=== PATIENT | female | born 1990 | race Caucasian/White ===

== ENCOUNTER 2025-04-20 15:26 | Outpatient (CLI) | payer SELFPAY ==
[2025-04-20 15:29] VITALS: BMI 36.3
--- NOTE | 2025-04-20 15:33 | XR_ITS ---
Examination: Complete OB ultrasound greater than 14 weeks Date and time of exam: April 20, 2025 1537 hours INDICATIONS: Vaginal discharge 2 days, no care Findings: Viable intrauterine single fetus with single amniotic sac presentation cephalic spine maternal left Cardiac motion 167 bpm Placenta posterior grade 2 Medical cord insertion 3 vessels seen Amniotic fluid index 8.3 cm Cervix 2.9 cm Ovaries obscured by bowel gas. Composite estimated gestational age based on BPD, head circumference, abdominal circumference, femur length is 34 weeks 0 days Estimated weight 2269.7 g. Survey of intracranial anatomy, spinal anatomy, abdominal anatomy, four-chamber heart performed with no abnormalities identified. Impression: Viable intrauterine gestation cephalic presentation.
[2025-04-20 16:20] VITALS: BP 111/62; PULSE 91
[2025-04-20 16:24] VITALS: BP 111/62; PULSE 91; RESP 100; RESP 18; TEMP 36.6
[2025-04-20 16:48] LABS: Basophils # (Auto) 0.0 Thou/mm3 (0.0-0.2); Basophils % (Auto) 0 % (0-2.5); Eosinophils # (Auto) 0.2 Thou/mm3 (0.0-0.5); Eosinophils % (Auto) 2 % (0-10); Hematocrit 32.8 % (36.0-46.0); Hemoglobin 10.5 g/dL (12.0-16.0); Immature Granulocytes Auto 0.06 Thou/mm3 (0.00-0.00); Lymphocytes # (Auto) 2.0 Thou/mm3 (1.0-4.8); Lymphocytes % (Auto) 19 % (10-50); Mean Corpuscular HGB Conc 32.0 g/dl (31.0-37.0); Mean Corpuscular Hemoglobin 25.7 pg (25.0-35.0); Mean Corpuscular Volume 80 fL (80-100); Monocytes # (Auto) 0.8 Thou/mm3 (0.0-0.8); Monocytes % (Auto) 8 % (0-12); Neutrophils # (Auto) 7.1 Thou/mm3 (1.8-7.7); Neutrophils % (Auto) 70 % (37-80); Nucleated Red Blood Cell # 0.00 Thou/mm3 (0.00-0.00); Nucleated Red Blood Cell % 0 /100 WBC (0); Platelet Count 212 Thou/mm3 (140-440); RDW Standard Deviation 39.6 fL (36.4-46.3); Red Blood Count 4.09 Miln/mm3 (4.00-5.20); White Blood Count 10.2 Thou/mm3 (3.6-11.0)
[2025-04-20 17:22] LABS: Syphilis Nonreactive (Nonreactive)
[2025-04-20 17:31] LABS: Hepatitis B Surface Antigen Non Reactive (Non React); Rubella, IgG Antibody Equivocal
[2025-04-20 18:18] LABS: HIV (1&2) Antibody Rapid Non-Reactive
== END 2025-04-20 17:25 | disposition home or self-care (01) ==
LOC: S4S1 15:28 → S4SX 15:28
PROVIDERS: Obstetrics & Gynecology; Referring Provider Obstetrics & Gynecology; Visit Provider Obstetrics & Gynecology
DX: O09.33 Supervision of pregnancy with insufficient antenatal care, third trimester (principal); Z3A.37 37 weeks gestation of pregnancy
CPT/HCPCS: 36415; 59025; 76805; 85025; 86703; 86762; 86780; 86850; 86900; 86901; 87340

== ENCOUNTER 2025-04-29 19:48 | Observation (INO) | payer MEDICAID, SELFPAY ==
[2025-04-29] VITALS (16 sets, daily range): BP systolic 115–128; BP diastolic 67–79; PULSE 76–229; RESP 16–98; TEMP 36.8; O2SAT 83–100; BMI 36.2
== END 2025-04-29 22:47 | disposition home or self-care (01) ==
PROVIDERS: Admitting Provider Obstetrics & Gynecology; Visit Provider Obstetrics & Gynecology
DX: O47.03 False labor before 37 completed weeks of gestation, third trimester (principal); Z3A.36 36 weeks gestation of pregnancy
CPT/HCPCS: 59899

== ENCOUNTER 2025-04-30 08:40 | Outpatient (AMB) | payer MEDICAID, SELFPAY ==
[2025-04-30 08:45] VITALS: BP 113/76; PULSE 83; RESP 16; TEMP 36.6; O2SAT 98; BMI 35.6
--- NOTE | 2025-04-30 08:45 | AMB.OBINITIA ---
Vital Signs 04/30/25 08:45 Height 1.6 m Height Method Stated Weight 91.172 kg Weight Measurement Method Standing Scale BMI 35.6 BP 113/76 Blood Pressure Source Automatic Cuff Blood Pressure Location Left Upper Arm Position Sitting Respiration 16 Pulse 83 Pulse Source Monitor Temp 97.8 F Temp Source Oral Pulse Oximetry (%) 98 Oxygen Delivery Method Room Air Allergies/Home Meds Allergies & Medications Allergies No Known Allergies Allergy (Verified 04/30/25 08:49) Medication Reconciliation vit no.95-ferrous fumarate 28 mg-folic acid 800 mcg tablet () 1 tab PO DAILY 04/29/25 [History Confirmed 04/30/25] Intake Visit Data Collection New Patient or Established: Established Patient (seen at [facility] within 3 years) Reason for Visit:: INITIAL CARE Seen by Clinical Staff ONLY (RN/MA): No Teacher Dramatics Required: No Do You Feel Safe at Home: Yes Authorities Contacted: N/A PCP or OBGYN visit in last 3 months: No Hx Now: Yes Are you currently on any form of Control: No Last menstrual period: 07/22/14 Pain Present Currently: No Pain Scale Used: Baker-Cherry/Numerical Pain scale:: 0 Smoking Status Smoking Status: Never smoker Immunizations Flu Vaccine in the Last 12 Months: No Flu Vaccine Exclusion Criteria: No Exclusion Criteria Questionnaires Covid-19 Vaccine Questionnaire Has patient been vacinated for Covid-19 Have you been vacinated for Covid-19: No PHQ-9 PHQ-2 Over the last 2 weeks, how often have you been bothered by any of the following problems? 1. Little interest or pleasure in doing things: not at all 2. Feeling down, depressed, or hopeless: not at all Total score: 0 PHQ-9 3. Trouble falling or staying asleep, or sleeping too much: Not at all 4. Feeling tired or having little energy: Not at all 5. Poor appetite or overeating: Not at all 6. Feeling bad about yourself - or that you are a failure or have let yourself or your family down: Not at all 7. Trouble concentrating on things, such as reading the newspaper or watching television: Not at all 8. Moving or speaking so slowly that other people could have noticed? - Or the opposite - being so fidgety or restless that you have been moving around a lot more than usual: not at all 9. Thoughts that you would be better off or of hurting yourself in some way: Not at all Total score: 0 Source: Developed by Drs. Ortega Michael, Lory Johnson, Silas Patricia and colleagues, with an educational hung from [employer]. Depression screen completed yes Social History Living Situation History Marital Status: Life Partner Lives With: Family Housing: House Tobacco History Smoking Status: Never smoker Alcohol History Alcohol Intake: Never Domestic Abuse History Do You Feel Safe at Home: Yes OB Initial Visit OB Flowsheet OB Flowsheet Initial Weight: Not Recorded Date <del>?</del> EGA Weight BP Alb Glu CTX Pres Fundal ht FHR Mov Dilation Station Effacement Hx Notes Visit Note 04/30/25 <del>?</del> 36w 4d 91.172 kg 113/76 frequent cephalic 39 135 - Julee Chavis is a female presenting with contractions and feeling tired and miserable. - She reports having 3 contractions, with the most recent being described as a faint contraction but associated with an urge to push. - Patient has been going back and forth between clinic and hospital visits recently. - She has had previous ultrasounds including an at-home test, with results showing 34 weeks gestation, though there is concern she may be further along. - Patient reports last menstrual period was July 22. - She has a history of herpes but denies any active outbreaks during this . - Last outbreak was almost 2 years ago. - She has been with the same partner for the last year and a half to almost 2 years. - Patient denies being on any medications. - She has no history of C-sections, reporting all normal births previously. Plan - Transfer patient to hospital for evaluation by Dr. Jonas on 4th floor - Patient's fianc? to retrieve home ultrasound picture to help establish accurate gestational dating - Use July 22 last menstrual period date for current charting - Provider to call Dr. Jonas to communicate patient transfer and clinical information Menstrual History Menstrual reliability: definite Flow: normal Menstrual regularity: irregular Monthly: No Age at menarche: 15 On control pills at conception: No Associated symptoms (LMP): Denies amenorrhea, nausea, vomiting, fatigue, breast tenderness, urinary frequency, irritability, bloating or other OB History : 10 Para: 8 Hx Total # of Abortions (Spontaneous & Elective): 1 # of Living Children: 8 Delivery History 1st : Child's name: JAZMÍN date: 02/18/07 sex: male Gestational age at delivery (weeks): 41 Delivery type: vaginal Delivery complications: NONE History of depression before or after : Yes 2nd : date: 09/06/09 sex: female Gestational age at delivery (weeks): 37 Delivery type: vaginal Delivery complications: NONE History of depression before or after : No 3rd : date: 07/02/10 sex: female Gestational age at delivery (weeks): 37 Delivery type: vaginal Delivery complications: NONE History of depression before or after : No 4th : date: 08/17/11 sex: female Gestational age at delivery (weeks): 37 Delivery type: vaginal Delivery complications: NONE History of depression before or after : No 5th : Child's name: FARIDA date: 01/29/20 sex: female Gestational age at delivery (weeks): 37 Delivery type: vaginal Delivery complications: HEMORRHAGE History of depression before or after : No 6th : Child's name: CAT date: 01/11/21 sex: female Gestational age at delivery (weeks): 38 Delivery type: vaginal Delivery complications: HEMORRHAGE History of depression before or after : No Infection History & Risk Evaluation Patient or partner has history of Genital Herpes: Yes Genetic Screening & History Genetic Screening/Teratology Counseling - Includes patient, baby's father, or anyone in either family with: 1. Patient's age 35 years or older as of estimated date of delivery: No 2. Thalassemia (Cape Verdean, Slovenian, Mediterranean, or Background); MCV less than 80: No 3. Neural Tube Defect (Meningomyelocele, Spina Bifida, or Anencephaly): No 4. Congenital Heart Defect: No 5. Down Syndrome: No 6. Kevin-Sachs (Ashkenazi Mu-Ism, Cajun, Korean [place]): No 7. Kevin Disease (Ashkenazi Mu-Ism): No 8. Familial Dysautonomia (Ashkenazi Mu-Ism): No 9. Sickle Cell Disease or Trait (): No 10. Hemophilia or other blood disorders: No 11. Muscular Dystrophy: No 12. Cystic Fibrosis: No 13. Doddridge's Chorea: No 14. Mental Retardation/Autism: No 15. Other inherited genetic or chromosomal disorder: No 16. Maternal Metabolic Disorder (EG,TYPE 1 Diabetes, PKU): No 17. Patient or baby's father had a child with defects not listed above: No 18. Recurrent loss or a stillbirth: No 19. Medications (including supplements, vitamins, herbs or otc drugs)/illicit/recreational drugs/alcohol since last menstrual period: No 20. Any other: No Infection History 1. Live with someone with TB or exposed to TB: No 2. Rash or viral illness since last menstrual period: No 3. Hepatitis B,C: No Other (see comments) Source: [employer] Review of Systems Constitutional Constitutional: Denies fatigue Gastrointestinal Gastrointestinal: Denies bloating, Denies nausea and Denies vomiting Genitourinary Genitourinary: Denies amenorrhea and Denies urinary frequency Psychiatric Psychiatric: Denies irritability Endocrine Endocrine: Denies fatigue Office Procedures [facility] LOC & Office Proc's Nursing/Assessment Patient Status: Established Patient OB Clinic Nursing Assessment: Medication Reconciliation, Update PMH in EMR and Vital Signs OB Clinic Coordination of Care: Complex Care and Chronic Disease 1-5, Education Complex Pt/Fam, Consent,records obtained, informed consent, 2-3 Insurance Autorizations needed, Lab and Imaging orders, Results/Orders obtained and Staff clarify orders Special Needs: Heart tones Established Patient Charge Established Patient Point Assignment: 160 Established Patient Point Charge: EP Level 5 (160-above) Assessment & Plan Diagnosis / Problem List (1) Supervision of high risk , unspecified, third trimester: Status: Acute Plan Problem List - labor - Herpes simplex Assessment Patient presents with active labor symptoms including contractions with urge to push. Gestational age discrepancy exists between current ultrasound showing 34 weeks versus patient's last menstrual period of July 22 and previous ultrasound dating to May 06. Patient has history of herpes simplex virus with last outbreak approximately 2 years ago, currently inactive with no outbreaks during this and not on antiviral medications. Patient is multiparous with history of normal vaginal deliveries and no prior sections. Plan - Transfer patient to hospital for evaluation by Dr. Jonas on 4th floor - Patient's fianc? to retrieve home ultrasound picture to help establish accurate gestational dating - Use July 22 last menstrual period date for current charting - Provider to call Dr. Jonas to communicate patient transfer and clinical information 1. Progress Reviewed gestational age, growth, and heart rate. Planned frequent visits (every 2 weeks until 36 weeks, then weekly). 2. Instructed patient to monitor movements and report decreases immediately. 3. Testing Counseled on routine third-trimester labs per guidelines. Discussed potential need for ultrasound or monitoring based on risk factors. 4. Preeclampsia Precaution Educated on preeclampsia signs: severe headache, vision changes, right upper quadrant pain, sudden swelling. Advised urgent reporting of symptoms and discussed blood pressure monitoring if high risk. 5. Labor Precautions Reviewed labor signs: regular contractions, pelvic pressure, back pain, bleeding, or fluid leakage. Instructed to seek immediate care for these symptoms. 6. Lifestyle and Delivery Preparation Reinforced vitamins, nutrition, and safe activity. Discussed plan, pain management, and . Advised on labor preparation (e.g., hospital bag) and expectations. 7. Psychosocial Support Assessed emotional well-being and offered resources for mental health or parenting support.
== END 2025-04-30 09:17 | disposition home or self-care (01) ==
LOC: HODSOBC 08:40
PROVIDERS: Supervising Provider Obstetrics & Gynecology; Visit Provider Obstetrics & Gynecology
DX: O09.893 Supervision of other high risk pregnancies, third trimester (principal); O60.03 Preterm labor without delivery, third trimester; O98.513 Other viral diseases complicating pregnancy, third trimester; B00.9 Herpesviral infection, unspecified; O26.843 Uterine size-date discrepancy, third trimester; Z3A.36 36 weeks gestation of pregnancy
CPT/HCPCS: 99215; G0463

== ENCOUNTER 2025-04-30 10:16 | Observation (INO) | payer MEDICAID, SELFPAY ==
--- NOTE | 2025-04-30 10:20 | XR_ITS ---
Examination: Complete OB ultrasound greater than 14 weeks Date and time of exam: April 30, 2025, 1053 hours INDICATIONS: Limited care, pelvic contractions beginning last night Findings: Viable intrauterine single fetus with single amniotic sac presentation cephalic spine maternal left Cardiac motion 169 bpm Placenta posterior fundal grade 2 Medical cord insertion 3 vessels seen Amniotic fluid index 7.7 cm Ovaries obscured by bowel gas. Composite estimated gestational age based on BPD, head circumference, abdominal circumference, femur length is 36 weeks 4 days Estimated weight 2968 g. Survey of intracranial anatomy, spinal anatomy, abdominal anatomy, four-chamber heart performed with no abnormalities identified. Impression: Viable intrauterine gestation in cephalic presentation.
[2025-04-30 10:26] VITALS: BP 122/64; PULSE 98
[2025-04-30 10:51] VITALS: BP 122/64; RESP 18; RESP 99; TEMP 36.7; BMI 35.7
--- NOTE | 2025-04-30 11:07 | PD.EVENT ---
Documentation for date of: 04/30/25 Event Note Event Note: The patient is a 34-year-old with limited care this . She presented to the office to see Dr. Silverman today and stated she was having some early contractions. Patient stated her due date might be any day now. Her LMP per patient was 07/22/2024, however the patient was in [place] with some type of throat infection this spring, and an ultrasound was done 10/29/2024 revealing a 10-week 5-day fetus giving an EDC of 05/22/2025. Patient is 36-6/7 weeks today. She is gini irregularly and today her cervix is 2-3 and thick. The plan will be to check a UDS, a group B strep and an official ultrasound. Will make sure all labs have been drawn. Patient will be discharged home if her cervix does not change. Her due date will be 05/22/2025 by a first trimester official ultrasound in [place] on the chart. She can follow-up next week in the clinic with Dr. Silverman. Of note per patient, she has a history of shoulder dystocia x 1, and a history of a hemorrhage. She would likely need to lines and blood on hold when admitted in labor.
== END 2025-04-30 11:50 | disposition home or self-care (01) ==
PROVIDERS: Admitting Provider Obstetrics & Gynecology; Visit Provider Obstetrics & Gynecology
DX: O47.1 False labor at or after 37 completed weeks of gestation (principal); Z3A.37 37 weeks gestation of pregnancy
CPT/HCPCS: 59025; 59899; 76805

== ENCOUNTER 2025-05-01 20:50 | Observation (INO) | payer MEDICAID, SELFPAY ==
[2025-05-01] VITALS (13 sets, daily range): BP systolic 126; BP diastolic 76; PULSE 86–98; RESP 18–98; TEMP 37; O2SAT 98–100; BMI 36.3
== END 2025-05-01 23:27 | disposition home or self-care (01) ==
PROVIDERS: Admitting Provider Obstetrics & Gynecology; Visit Provider Obstetrics & Gynecology
DX: O26.893 Other specified pregnancy related conditions, third trimester (principal); Z3A.37 37 weeks gestation of pregnancy; R10.20 Pelvic and perineal pain unspecified side
CPT/HCPCS: 59025; 59899